=== PATIENT | female | born 1990 | race Caucasian/White ===

== ENCOUNTER 2018-07-14 11:37 | Outpatient (CLI) | END 2018-07-14 11:38 | disposition home or self-care (01) | LOC: RHC-LAB 11:37 | PROVIDERS: ATTEND Nurse Practitioner Family | DX: J02.9 Acute pharyngitis, unspecified (principal); R50.9 Fever, unspecified | CPT/HCPCS: 87502; 87651 ==

== ENCOUNTER 2018-08-18 12:12 | Outpatient (CLI) | END 2018-08-18 12:13 | disposition home or self-care (01) | LOC: CAR 12:12 | PROVIDERS: ATTEND Physician Assistant | DX: R00.2 Palpitations (principal) | CPT/HCPCS: 93005; 93010 ==

== ENCOUNTER 2018-08-29 12:53 | Outpatient (CLI) ==
--- NOTE | 2018-08-31 11:41 | HOLTER ---
PATIENT INFORMATION AND COMMENTS Attending Physician: MILAD ALSTON APRN Indications: PALPITATIONS __ Patient Medications: VITAMINS __ Pre-procedure Summary: Protocol: Standard Heart Rate Started: 08/29/18 1321 Minimum: 48 BPM Weight: 122 LBS Ended: 08/30/18 1321 Maximum: 153 BPM Height: 62" Duration: 24 HOURS Average: 81 BPM _ INTERPRETATIONS/OBSERVATIONS: 1. BASIC RHYTHM: SINUS, RATE 50 BPM TO 150 BPM, AVERAGE 80 BPM 2. PVC'S NOTED--5 TO 6% OF BEATS SCANNED 3. FEW PAC'S 4. NO ST-T WAVE CHANGES FROM BASELINE 5. ACTIVITY LOG NOT MAINTAINED MTDD
== END 2018-08-29 12:54 | disposition home or self-care (01) ==
LOC: CAR 12:53
PROVIDERS: ATTEND Physician Assistant
DX: R00.2 Palpitations (principal)
CPT/HCPCS: 93227